=== PATIENT | male | born 1950 | race Caucasian/White ===

== ENCOUNTER 2017-05-24 15:30 | Emergency (ER) | payer OTHER, MEDICARE ==
[2017-05-24 15:41] VITALS: TEMP 97.7
[2017-05-24] MEDS ORDERED: NS 1,000 ML IV ONE (15:45)
--- NOTE | 2017-05-24 15:46 | CPEKG ---
Heart Rate: 54 RR Interval: 1111 P-R Interval: 192 QRSD Interval: 90 QT Interval: 428 QTC Interval: 406 P Somerset: 68 QRS Somerset: -61 T Wave [place]: 57 EKG Severity - ABNORMAL ECG - EKG Impression: SINUS RHYTHM EKG Impression: VENTRICULAR PREMATURE COMPLEX EKG Impression: INTERPOLATED VENTRICULAR PREMATURE COMPLEX EKG Impression: LEFT ANTERIOR FASCICULAR BLOCK Electronically Signed By: Irvin Mead 24-May-2017 15:50:52
--- NOTE | 2017-05-24 15:49 | EDPHY ---
H & P Stated Complaint: l facial numbness/l blurred vision/lightheaded Time Seen by Provider: 05/24/17 15:45 HPI/ROS: CHIEF COMPLAINT: Lightheaded, left facial tingling, double vision HISTORY OF PRESENT ILLNESS: The patient is a 67-year-old man with no significant past medical history who comes to the emergency department with his complaining that about an hour ago he had sudden onset of lightheadedness, left-sided facial numbness and double vision. No weakness or speech deficits. His did a stroke exam and states that it was normal. She states that his language was not impaired in his smile was not crooked. Patient denies any chest pain or shortness of breath. No diaphoresis or nausea. No recent trauma or infection. No headache. REVIEW OF SYSTEMS: Constitutional: denies: chills, fever, recent illness, recent injury EENTM: denies: blurred vision, double vision, nose congestion Respiratory: denies: cough, shortness of breath Cardiac: See HPI Gastrointestinal/Abdominal: denies: abdominal pain, diarrhea, nausea, vomiting, blood streaked stools Genitourinary: denies: dysuria, frequency, hematuria, pain Musculoskeletal: denies: joint pain, muscle pain Skin: denies: lesions, rash, jaundice, bruising Neurological: See HPI Hematologic/Lymphatic: denies: blood clots, easy bleeding, easy bruising Immunologic/allergic: denies: HIV/AIDS, transplant EXAM: GENERAL: Well-appearing, well-nourished and in no acute distress. HEAD: Atraumatic, normocephalic. EYES: Pupils equal round and reactive to light, extraocular movements intact, sclera anicteric, conjunctiva are normal. ENT: TMs normal, nares patent, oropharynx clear without exudates. Moist mucous membranes. Normal retinal exam, no nystagmus NECK: Normal range of motion, supple without lymphadenopathy or JVD. LUNGS: Breath sounds clear to auscultation bilaterally and equal. No wheezes rales or rhonchi. HEART: Regular rate and rhythm without murmurs, rubs or gallops. ABDOMEN: Soft, nontender, normoactive bowel sounds. No guarding, no rebound. No masses appreciated. BACK: No CVA tenderness, no spinal tenderness, step-offs or deformities EXTREMITIES: Normal range of motion, no pitting or edema. No clubbing or cyanosis. NEUROLOGICAL: NIH stroke score 0, Cranial nerves II through XII grossly intact. Normal speech, normal gait. 5/5 strength, normal movement in all extremities, normal sensation, normal cerebellar exam, normal peripheral vision exam PSYCH: Normal mood, normal affect. SKIN: Warm, dry, normal turgor, no visible rashes or lesions. Source: Patient Exam Limitations: No limitations - Personal History Current Tetanus/Diphtheria Vaccine: Yes - Medical/Surgical History Hx Asthma: No Hx Chronic Respiratory Disease: No Hx Diabetes: No Hx Cardiac Disease: No Hx Renal Disease: No Hx Cirrhosis: No Hx Alcoholism: No Hx HIV/AIDS: No Hx Splenectomy or Spleen Trauma: No Other PMH: sports inj - Family History Significant Family History: No pertinent family hx - Social History Smoking Status: Never smoked Alcohol Use: Sober Drug Use: None Constitutional: Initial Vital Signs Temperature (C) 36.5 C 05/24/17 15:38 Heart Rate 58 L 05/24/17 15:38 Respiratory Rate 18 05/24/17 15:38 Blood Pressure 135/87 H 05/24/17 15:38 O2 Sat (%) 96 05/24/17 15:38 O2 Delivery Mode Room Air Allergies/Adverse Reactions: Sulfa (Sulfonamide Antibiotics) Allergy (Verified 11/16/15 23:49) Home Medications: Medication Instructions Recorded NK [No Known Home Meds] 11/16/15 Medical Decision Making - Diagnostics EKG Interpretation: An EKG obtained and was read and documented in trace view. Please see trace view for full reading and report. Sinus rhythm, no acute ischemic changes Imaging Results: Imaging Impressions Head CT 05/24/17 15:45 Impression: There is no acute abnormality identified on this unenhanced CT evaluation. If there is further clinical concern regarding the patient's symptoms, MR imaging is suggested, if not otherwise contraindicated. Findings were discussed with ASCENCION WILSON MD at 16:49, on 05/24/2017. Imaging: Discussed imaging studies w/ body painter Radiologist ED Course/Re-evaluation: 5:00 p.m. we discussed the patient's lab and imaging results which are reassuring. We discussed his risk score which is 1% risk of having a stroke in the next 2 days and 3% of having a stroke in the next 3 months. He I recommended admission for further testing and observation. He would prefer to go home. I will call his primary for discussion. He goes to the [facility] with Dr. Pepe. I will start him on aspirin. 6:30 p.m. after multiple pages we have not yet got a hold of [facility] on-call physician. Patient is refusing to wait any longer. He will call tomorrow to make an appointment. I will continue to paged and make an effort to communicate the plan. The patient understands the risks involved. 8:00 p.m. I discussed the case with Dr. Owens who will arrange early follow- up. Differential Diagnosis: Partial list of the Differential diagnosis considered include but were not limited to; the TIA, syncope, anxiety and although unlikely based on the history and physical exam, I also considered infection, hemorrhage, aneurysm, dissection. I discussed these differential diagnoses and the plan with the patient as well as the usual and expected course. The patient understands that the diagnosis is provisional and that in medicine we are not always correct and that further workup is often warranted. Usual and customary warnings were given. All of the patient's questions were answered. The patient was instructed to return to the emergency department should the symptoms at all worsen or return, otherwise to followup with the physician as we discussed. - Data Points Laboratory Results: Laboratory Results 05/24/17 15:41 05/24/17 15:41 05/24/17 05/24/17 05/24/17 15:41 15:41 15:41 WBC 5.73 10^3/uL 10^3/uL (3.80-9.50) RBC 4.88 10^6/uL 10^6/uL (4.40-6.38) Hgb 15.2 g/dL g/dL (13.7-17.5) POC Hgb Hct 43.6 % % (40.0-51.0) POC Hct MCV 89.3 fL fL (81.5-99.8) MCH 31.1 pg pg (27.9-34.1) MCHC 34.9 g/dL g/dL (32.4-36.7) RDW 13.5 % % (11.5-15.2) Plt Count 240 10^3/uL 10^3/uL (150-400) MPV 8.8 fL fL (8.7-11.7) Neut % (Auto) 54.2 % % (39.3-74.2) Lymph % (Auto) 33.5 % % (15.0-45.0) Kleberg % (Auto) 9.2 % % (4.5-13.0) Eos % (Auto) 2.4 % % (0.6-7.6) Baso % (Auto) 0.5 % % (0.3-1.7) Nucleat RBC Rel Count 0.0 % % (0.0-0.2) Absolute Neuts (auto) 3.10 10^3/uL 10^3/uL (1.70-6.50) Absolute Lymphs (auto) 1.92 10^3/uL 10^3/uL (1.00-3.00) Absolute Monos (auto) 0.53 10^3/uL 10^3/uL (0.30-0.80) Absolute Eos (auto) 0.14 10^3/uL 10^3/uL (0.03-0.40) Absolute Basos (auto) 0.03 10^3/uL 10^3/uL (0.02-0.10) Absolute Nucleated RBC 0.00 10^3/uL 10^3/uL (0-0.01) Immature Gran % 0.2 % % (0.0-1.1) Immature Gran # 0.01 10^3/uL 10^3/uL (0.00-0.10) PT 14.3 SEC SEC (12.0-15.0) INR 1.09 (0.83-1.16) POC Sodium Sodium 139 mEq/L mEq/L (134-144) POC Potassium Potassium 4.7 mEq/L mEq/L (3.5-5.2) POC Chloride Chloride 104 mEq/L mEq/L (97-110) Carbon Dioxide 24 mEq/l mEq/l (22-31) Anion Gap 11 mEq/L mEq/L (8-16) POC BUN BUN 14 mg/dL mg/dL (7-23) Creatinine 1.0 mg/dL mg/dL (0.7-1.3) POC Creatinine Estimated GFR > 60 Glucose 93 mg/dL mg/dL (70-100) POC Glucose Calcium 9.0 mg/dL mg/dL (8.5-10.4) Troponin I < 0.012 ng/mL ng/mL (0.000-0.034) 05/24/17 15:35 WBC RBC Hgb POC Hgb 15.3 gm/dL gm/dL (13.7-17.5) Hct POC Hct 45 % % (40-51) MCV MCH MCHC RDW Plt Count MPV Neut % (Auto) Lymph % (Auto) Kleberg % (Auto) Eos % (Auto) Baso % (Auto) Nucleat RBC Rel Count Absolute Neuts (auto) Absolute Lymphs (auto) Absolute Monos (auto) Absolute Eos (auto) Absolute Basos (auto) Absolute Nucleated RBC Immature Gran % Immature Gran # PT INR POC Sodium 140 mEq/L mEq/L (134-144) Sodium POC Potassium 4.2 mEq/L mEq/L (3.3-5.0) Potassium POC Chloride 101 mEq/L mEq/L (97-110) Chloride Carbon Dioxide Anion Gap POC BUN 14 mg/dL mg/dL (7-23) BUN Creatinine POC Creatinine 1.1 mg/dL mg/dL (0.7-1.3) Estimated GFR Glucose POC Glucose 93 mg/dL mg/dL (70-100) Calcium Troponin I Medications Given: Discontinued Medications Sodium Chloride (Ns) 1,000 mls @ 0 mls/hr IV ONCE ONE; Wide Open PRN Reason: Protocol Stop: 05/24/17 15:46 Last Admin: 05/24/17 15:58 Dose: 1,000 mls Point of Care Test Results: 05/24/17 15:35 POC Sodium 140 POC Potassium 4.2 POC Chloride 101 POC BUN 14 POC Creatinine 1.1 POC Glucose 93 Departure - Departure Disposition: Home, Routine, Self-Care Clinical Impression: Transient cerebral ischemia Qualifiers: Transient cerebral ischemia type: unspecified Qualified Code(s): G45.9 - Transient cerebral ischemic attack, unspecified Condition: Fair Instructions: Transient Ischemic Attack (ED) Additional Instructions: Start taking aspirin daily Referrals: Roshni Richmond NP [Primary Care Provider] - As per Instructions
[2017-05-24 15:57] LABS: PLATELET COUNT 240 10^3/uL (150-400)
[2017-05-24 16:28] LABS: INR 1.09 (0.83-1.16); PROTIME(PATIENT) 14.3 SEC (12.0-15.0)
[2017-05-24 16:40] VITALS: BP 132/89; RESP 18
[2017-05-24 17:59] VITALS: O2SAT 96
[2017-05-24 18:47] VITALS: PULSE 48
== END 2017-05-24 18:40 | disposition home or self-care (01) ==
PROC: 3E0337Z Introduction of Electrolytic and Water Balance Substance into Peripheral Vein, Percutaneous Approach (ICD-10-PCS; principal; 2017-05-24)
DX: G45.9 Transient cerebral ischemic attack, unspecified (principal); E86.9 Volume depletion, unspecified
CPT/HCPCS: 82947-QW

== ENCOUNTER → 2017-09-07 | Day surgery (SDC) | payer OTHER, MEDICARE ==
[~2017-09-07] MED LIST: LIDOCAINE 1% 300 MG/30 ML SDV ONE; LIDOCAINE 1% 300 MG/30 ML SDV SC ONE
--- NOTE | 2017-09-07 08:39 | PDHPUP ---
History & Physical Update H&P update statement: This history and physical update is based on an assessment of the patient which was completed after admission or registration (within 24 hours), but prior to the surgery/procedure. 67 year old male with hx of PFO and TIA. No evidence of afib on Zio patch. Presents for implantable loop recorder. H&P update: H&P reviewed & patient examined, no change in patient's condition since H&P completed
--- NOTE | 2017-09-07 09:39 | CPR ---
[f rep st] NONINVASIVE CARDIAC PROCEDURE REPORT DATE OF PROCEDURE: 09/07/2017 PROCEDURE PERFORMED: [employer] implantable loop recorder. INDICATION FOR PROCEDURE: TIA of unclear etiology. SUMMARY: The patient is a pleasant 67-year-old gentleman with a known history of PFO and TIA. He greenwood s undergone extensive workup including ZIO patch monitor, which did not demonstrate any evidence of a trial fibrillation. In the setting of idiopathic TIA, decision was made for implantable loop recorde r. DESCRIPTION OF PROCEDURE: After informed consent was obtained, patient was prepped and draped in a s terile fashion. Fourth intercostal space was marked. Lidocaine was placed. A total of 11 cc of lid ocaine was used. Once local anesthesia was achieved, incision was made with scalpel blade and scalpe l tool provided in the [employer] kit. Device was implanted without difficulty under the skin. Hemost asis was achieved. Patient tolerated the procedure well. Steri-Strips were placed. Sterile dressin g was placed as well. At the time of this dictation, device is being interrogated. Was set with par ameters for TIA and possible atrial fibrillation. PLAN: 1. Patient will be discharged home. 2. Patient will follow up in the office in 1 week for wound check. Copy requested to: Dr. Zully Sanabria, Neurologist [facility] /[id number]/[id number]
== END | disposition home or self-care (01) ==
LOC: FCATH 07:53
PROVIDERS: ATTEND Internal Medicine Cardiovascular Disease
PROC: 0JH602Z Insertion of Monitoring Device into Chest Subcutaneous Tissue and Fascia, Open Approach (ICD-10-PCS; principal; 2017-09-07)
DX: Z86.73 Personal history of transient ischemic attack (TIA), and cerebral infarction without residual deficits (principal); Z87.74 Personal history of (corrected) congenital malformations of heart and circulatory system; Z88.2 Allergy status to sulfonamides
CPT/HCPCS: C1764

== ENCOUNTER → 2018-01-25 | Outpatient (CLI) | payer OTHER, MEDICARE | LOC: FIMAGING 15:03 | PROVIDERS: ATTEND Internal Medicine Cardiovascular Disease | DX: M79.89 Other specified soft tissue disorders (principal); Q21.1 Atrial septal defect ==

== ENCOUNTER → 2018-03-01 | Outpatient (CLI) | payer OTHER, MEDICARE | LOC: BMCIMAGING 18:38 | PROVIDERS: ATTEND Family Medicine | DX: J93.9 Pneumothorax, unspecified (principal); J98.4 Other disorders of lung ==

== ENCOUNTER → 2018-03-04 | Outpatient (CLI) | payer OTHER, MEDICARE | LOC: BMCIMAGING 15:08 → MERGE 15:08 | PROVIDERS: ATTEND Family Medicine | DX: J93.9 Pneumothorax, unspecified (principal); I51.7 Cardiomegaly ==

== ENCOUNTER → 2018-03-16 | Outpatient (CLI) | payer OTHER, MEDICARE ==
[~2018-03-16] MED LIST changes: +IOPAMIDOL (ISOVUE-300) 100 ML BTL ONE; -LIDOCAINE 1% 300 MG/30 ML SDV ONE; -LIDOCAINE 1% 300 MG/30 ML SDV SC ONE
== END ==
LOC: FIMAGING 09:37
PROVIDERS: ATTEND Internal Medicine
DX: R91.1 Solitary pulmonary nodule (principal); I28.8 Other diseases of pulmonary vessels; S22.41XA Multiple fractures of ribs, right side, initial encounter for closed fracture
CPT/HCPCS: 71260; Q9967; 82565-PO